=== PATIENT | male | born 1950 | race Caucasian/White ===

== ENCOUNTER 2018-08-04 12:34 | Day surgery (SDC) | payer MEDICARE, OTHER ==
[2018-08-04] MEDS ORDERED: LIDOCAINE 100 MG SYRINGE (14:45)
[2018-08-04] MEDS ORDERED: PROPOFOL 40 ML (14:45)
[2018-08-04] MEDS ORDERED: FENTAnyl 50 MCG/ML VIAL (15:00)
== END 2018-08-04 20:21 | disposition home or self-care (01) ==
LOC: GIL 12:34
DX: K29.70 Gastritis, unspecified, without bleeding (principal); K64.8 Other hemorrhoids; K62.5 Hemorrhage of anus and rectum; E11.9 Type 2 diabetes mellitus without complications; E78.5 Hyperlipidemia, unspecified
CPT/HCPCS: 43239; 88305